=== PATIENT | female | born 1945 | race Hispanic/Latino ===

== ENCOUNTER → 2017-07-29 | Outpatient (CLI) | payer MEDICARE ==
[~2017-07-29] MED LIST: GEMFIBROZIL600 MG PO; IRBESARTAN-HCT1 EAC1 PO; METFORMIN HCL500 MG PO; METOPROLOL SUCC25 MG PO; MUCINEX1200 MG PO; NAPROXEN SODIU550 MG PO; OMEPRAZOLE40 MG PO; PRAVASTATIN SOD40 MG PO; VITAMIN D250000 UNIT PO
--- NOTE | 2017-07-29 12:48 | Diagnostic Imaging Report ---
PROCEDURE:CERVICAL SPINE COMPLETE TECHNIQUE:AP, lateral, open mouth and bilateral oblique views cervical spine totaling 5 radiographs INDICATION:Neck pain COMPARISON:None. FINDINGS: Cervical spine evaluated from the skull base through the cervicothoracic junction. Diffuse disc space narrowing from C3-T1, with associated marginal osteophytosis, subchondral sclerosis and uncovertebral arthropathy. Mild bilateral facet arthropathy from C3-T1. Mild left C6-C7 neural foramen narrowing. Remaining neural foramen are unremarkable. Mild loss of normal cervical lordosis with normal regional soft tissues. CONCLUSION: Multilevel degenerative disc disease from C3-T1 with associated facet arthropathy and uncovertebral sclerosis. Mild bony neural foraminal narrowing on the left at C6-C7. Dictated by: Carl Kruse M.D. on 07/29/2017 at 12:49 Electronically approved by: Carl Kruse M.D. on 07/29/2017 at 12:49
== END ==
LOC: RAD 11:20
PROVIDERS: ATTEND Family Medicine
DX: M54.2 Cervicalgia (principal)
CPT/HCPCS: 72050

== ENCOUNTER → 2017-08-14 | Day surgery (SDC) | payer MEDICARE ==
[2017-07-29 12:10] LABS: BASOPHILS % 0.6 % (0.0-1.0); EOSINOPHILS % 0.1 % (0.0-6.0); HEMATOCRIT 30.9 % (34.2-44.1); HEMOGLOBIN 9.8 g/dL (12.0-16.0); LYMPHOCYTES # (AUTO) 1.2 (1.0-3.2); MEAN CORPUSCULAR HEMOGLOBIN 28.7 pg (28-32); MEAN CORPUSCULAR HGB CONC 31.7 g/dL (31-35); MEAN CORPUSCULAR VOLUME 90.6 fL (81-99); MONOCYTES # (AUTO) 0.7 (0.2-0.8); MONOCYTES % 10.1 % (4.4-11.3); NEUTROPHILS # (AUTO) 4.8 (2.1-6.9); NEUTROPHILS % 70.8 % (38.7-80.0); PLATELET COUNT 365 x10e3/uL (140-360); RED BLOOD COUNT 3.41 x10e6/uL (3.6-5.1); RED CELL DISTRIBUTION WIDTH 14.8 % (11.7-14.4)
[~2017-08-14] MED LIST changes: +FENTANYL CITRATE/PF 100MCG/2 ML INJ ONE; +LIDOCAINE HCL 2% LOCAL INJ 5 ML SDV VIAL INJ ONE; +MIDAZOLAM HCL 2 MG/2 ML VIAL ONE; +PROPOFOL IV EMULSION 10 MG/ML 50 ML VIAL ONE
--- OUTSIDE RECORDS SUMMARY | 2017-08-14 06:08 | XMS REPORT ---
[facility] Address Unknown Phone Unavailable Care Team Providers Care Canned Food Reconditioning Inspector Name Role Phone MEGA MO Unavailable Unavailable Problems This patient has no known problems. Allergies, Adverse Reactions, Alerts This patient has no known allergies or adverse reactions. Medications This patient has no known medications. Results Test Description Test Time Test Comments Text Results Atomic Results Result Comments CERVICAL SPINE 4 OR 5 VIEWS [place] [address] Patient Name: BRAXTON FLETCHER MR #: [id number] : 1945 Age/Sex: 72/F Req #: [id number] [facility] Physician: Ordered by: CHEPE RICARDO, MEGA Vicente MD Report #: [id number] Location: [facility] Room/Bed: ____ Procedure: [id number] DX/CERVICAL SPINE 4 OR 5 VIEWS Exam Date: Exam Time: 1200 REPORT STATUS: Signed PROCEDURE: CERVICAL SPINE COMPLETE TECHNIQUE: AP, lateral, open mouth and bilateral oblique views cervical spine totaling 5 radiographs INDICATION: Neck pain COMPARISON: None. FINDINGS: Cervical spine evaluated from the skull base through the cervicothoracic junction. Diffuse disc space narrowing from C3-T1, with associated marginal osteophytosis, subchondral sclerosis and uncovertebral arthropathy. Mild bilateral facet arthropathy from C3-T1. Mild left C6-C7 neural foramen narrowing. Remaining neural foramen are unremarkable. Mild loss of normal cervical lordosis with normal regional soft tissues. CONCLUSION: Multilevel degenerative disc disease from C3-T1 with associated facet arthropathy and uncovertebral sclerosis. Mild bony neural foraminal narrowing on the left at C6-C7. Dictated by: Miriam Kruse M.D. on 07/29/2017 at 12:49 Electronically approved by: Miriam Kruse M.D. on 07/29/2017 at 12:49 Dictated By: MIRIAM KRUSE MD 1249 Transcribed By: AGUSTINA on 07/29/17 1249 COPY TO: MEGA MO VENOUS DUPLEX LWR B/L [place] [address] Patient Name : BRAXTON FLETCHER MR #: [id number] : 1945 Age/Sex: 71/F Adm Physician : MEGA MO Admit Date : Location : [facility] Room/Bed : REPORT: Cardiology Report DATE OF STUDY: DOPPLER SCAN OF LOWER EXTREMITY VEINS A 71-year-old female. The lower extremity veins were interrogated using the duplex scanning method. The veins were compressible. There was no definite deep venous thrombosis. CONCLUSIONS: No definite deep venous thrombosis involving the lower extremity veins bilaterally. Job #: [id number] RI cc: MD LENIN PIÑA MD Signature Date Dictated By: SHANNAN DE LA TORRE MD Transcribed By: SMEDS on 03/14/17 <Electronically signed by SHANNAN DE LAT ORRE MD><<Signature on File>>03/27/17 0903 COPY TO: CHEST [address] [place] [address] Patient Name: BRXATON FLETCHER MR #: [id number] : 1945 Age/Sex: 71/F Req #: [id number] [facility] Physician: Ordered by: MEGA MO MD, MD Report #: [id number] Location: [facility] Room/Bed: Procedure: [id number] DX/CHEST 2 VIEWS Exam Date: 03/13/17 Exam Time : 1445 REPORT STATUS: Signed PROCEDURE: X-RAY CHEST, TWO VIEWS COMPARISON: None. INDICATIONS: CHRONIC COUGH FINDINGS : Cardiomediastinal silhouette and pulmonary vasculature are within normal limits. There are atherosclerotic calcifications in aortic arch. Both hemidiaphragms are well visualized. Bilateral costophrenic sulci are clear. No evidence of consolidation, edema, or pleural effusion. No focal bony abnormalities appreciated. Surgical clips in the right upper quadrant are suggestive of cholecystectomy. CONCLUSION: No acute cardiopulmonary process. Dictated by: Mitul Doyle M.D. on 2016 at 15:10 Electronically approved by: Mitul Doyle M.D. on 03/13 at 15:10 Dictated By: MITUL DOYLE MD 1510 Transcribed By : AGUSTINA on 03/13/17 1510 COPY TO: MEGA MO
== END | disposition home or self-care (01) ==
LOC: OR 06:05
PROVIDERS: ATTEND Internal Medicine Gastroenterology
DX: K29.50 Unspecified chronic gastritis without bleeding (principal); K25.9 Gastric ulcer, unspecified as acute or chronic, without hemorrhage or perforation; K21.9 Gastro-esophageal reflux disease without esophagitis; K44.9 Diaphragmatic hernia without obstruction or gangrene; K57.30 Diverticulosis of large intestine without perforation or abscess without bleeding; K64.8 Other hemorrhoids; D50.9 Iron deficiency anemia, unspecified; E66.9 Obesity, unspecified; I10 Essential (primary) hypertension; E11.9 Type 2 diabetes mellitus without complications; M19.90 Unspecified osteoarthritis, unspecified site; R06.02 Shortness of breath; E78.5 Hyperlipidemia, unspecified; R01.1 Cardiac murmur, unspecified; Z01.810 Encounter for preprocedural cardiovascular examination; Z01.812 Encounter for preprocedural laboratory examination; Z68.31 Body mass index [BMI] 31.0-31.9, adult
CPT/HCPCS: 36415; 43239; 45378; 82948; 88305; 88312; J2001; J2250; 85025; 93005

== ENCOUNTER → 2022-08-06 | Day surgery (SDC) | payer MEDICARE, OTHER ==
[~2022-08-06] MED LIST changes: +ASPIRIN81 MG PO; +CALTRATE 600 W1 EACH PO; +CREON DR 12,001 EACH PO; +CRESTOR10 MG PO; +LACTATED RINGER'S 1,000 ML ONE; -LIDOCAINE HCL 2% LOCAL INJ 5 ML SDV VIAL INJ ONE; +MICARDIS80 MG PO; +OR PHACO EYE KIT ONE; -PROPOFOL IV EMULSION 10 MG/ML 50 ML VIAL ONE; +[UNRECOGNIZED DRUG - REMARK] TOP
[2022-08-06 10:58] VITALS: BP 126/52
== END | disposition home or self-care (01) ==
LOC: OR 07:51
PROVIDERS: ATTEND Ophthalmology
DX: H25.12 Age-related nuclear cataract, left eye (principal); Z79.82 Long term (current) use of aspirin; Z79.899 Other long term (current) drug therapy
CPT/HCPCS: J2250; V2632

== ENCOUNTER → 2022-08-20 | Day surgery (SDC) | payer MEDICARE, OTHER ==
[~2022-08-20] MED LIST changes: +AUGMENTIN 500-1 EACH PO; +MOXIFLOXACIN HCL(OPTH) 3 ML BTL ONE; +PREOP PHACO EYE KIT ONE
[2022-08-20 10:25] VITALS: BP 129/50
== END | disposition home or self-care (01) ==
LOC: OR 07:01
PROVIDERS: ATTEND Ophthalmology
DX: H25.11 Age-related nuclear cataract, right eye (principal); I25.10 Atherosclerotic heart disease of native coronary artery without angina pectoris; I10 Essential (primary) hypertension; E78.5 Hyperlipidemia, unspecified; E11.9 Type 2 diabetes mellitus without complications; Z79.82 Long term (current) use of aspirin; Z79.899 Other long term (current) drug therapy
CPT/HCPCS: 36415; 66984; 82948; J2250; J3010; J7121; V2632